=== PATIENT | male | born 1940 | race Caucasian/White ===

== ENCOUNTER → 2019-08-27 | Outpatient (CLI) | payer MEDICARE ==
[~2019-08-27] MED LIST: FINA5TAB4 PO; acid reflux med PO
[2019-08-27 12:21] LABS: MICROSCOPIC NOT IND
[2019-08-27 12:21] LABS: BASOPHILS # (AUTO) 0.03 x10^3/uL (0-0.1); BASOPHILS % (AUTO) 1 % (0-1); EOSINOPHILS # (AUTO) 0.22 x10^3/uL (0-0.4); EOSINOPHILS % (AUTO) 3 % (1-7); LYMPHOCYTES # (AUTO) 1.62 x10^3/uL (1-3.4); LYMPHOCYTES % (AUTO) 25 % (22-44); MD NO; MEAN CORPUSCULAR HEMOGLOBIN 30.6 pg (27.5-34.5); MEAN CORPUSCULAR HGB CONC 33.7 g/dL (33.2-36.2); MEAN CORPUSCULAR VOLUME 90.8 fL (81-97); MEAN PLATELET VOLUME 7.1 fL (7.4-10.4); MONOCYTES # (AUTO) 0.43 x10^3/uL (0.2-0.8); MONOCYTES % (AUTO) 7 % (2-9); NEUTROPHILS # (AUTO) 4.15 x10^3/uL (1.8-6.8); NEUTROPHILS % (AUTO) 64 % (42-75); PLATELET COUNT 251 x10^3/uL (130-400); RED BLOOD COUNT 4.65 x10^6/uL (4.38-5.82); RED CELL DISTRIBUTION WIDTH 13.4 % (9.4-14.8)
[2019-08-27 12:24] LABS: CULTURE INDICATED? NO
[2019-08-27 12:30] LABS: INTERNATIONAL NORMALIZED RATIO 0.95 (0.93-1.1); PROTHROMBIN TIME 10.1 Seconds (9.6-11.5)
[2019-08-27 12:34] LABS: CHLORIDE 104 mmol/L (98-107)
[2019-08-27 12:38] LABS: ANION GAP 5 mmol/L (5-15); CALCIUM 8.7 mg/dL (8.5-10.1); CREATININE 0.69 mg/dL (0.7-1.3)
== END | disposition home or self-care (01) ==
LOC: STAR 10:53
PROVIDERS: ATTEND Neurological Surgery
DX: Z01.811 Encounter for preprocedural respiratory examination (principal); K44.9 Diaphragmatic hernia without obstruction or gangrene; M47.814 Spondylosis without myelopathy or radiculopathy, thoracic region; M48.061 Spinal stenosis, lumbar region without neurogenic claudication; I45.10 Unspecified right bundle-branch block
CPT/HCPCS: 36415; 71046; 80048; 81003; 85025; 85610; 85730; 93005

== ENCOUNTER 2019-09-06 07:40 | Day surgery (SDC) | payer MEDICARE ==
[~2019-09-06] VITALS: Ht 172.7 cm; Wt 81.9 kg
[~2019-09-06 07:40] MED LIST changes: +BACITRACIN 50,000 UNIT ONE; +BUPIVACAINE/PF 0.25% ONE; +FENTANYL PF 100 MCG/2ML ONE; +methylPREDNISolone SOD SUCC 125 MG/2 ML ONE
[2019-09-06 08:24] VITALS: BP 144/84
[2019-09-06] MEDS ORDERED: LACTATED RINGERS 1,000 ML IV SCH (08:28)
[2019-09-06] MEDS ORDERED: TRAMADOL PO (08:29)
[2019-09-06] MEDS ORDERED: FENTANYL PF 250 MCG/5ML ONE (09:47)
[2019-09-06] MEDS ORDERED: MIDAZOLAM 1 MG/ML, 2ML ONE (09:47)
[2019-09-06] MEDS ORDERED: BUPIVACAINE/PF 0.25% ONE (10:09)
[2019-09-06] MEDS ORDERED: GABAPENTIN 300 MG CAPSULE PO ONE (10:30)
[2019-09-06] MEDS ORDERED: ONDANSETRON 2MG/ML, 2ML IV PRN (10:30)
[2019-09-06] MEDS ORDERED: OXYcodone 5 MG/5 ML ORAL.SOL UDC PO PRN (10:30)
[2019-09-06] MEDS ORDERED: OxyconTIN ER 10 MG TAB.ER PO ONE (10:30)
[2019-09-06] MEDS ORDERED: PROMETHAZINE 25 MG/ML, 1ML IV PRN (10:30)
[2019-09-06] MEDS ORDERED: MEPERIDINE/PF 25MG/ML,1ML IVPush PRN (10:30)
[2019-09-06] MEDS ORDERED: ACETAMINOPHEN 500 MG TABLET PO ONE (10:30)
[2019-09-06] MEDS ORDERED: hydrALAzine 20 MG/ML, 1ML IV PRN (10:30)
[2019-09-06] MEDS ORDERED: LABETALOL 5MG/ML, 20ML IV PRN (10:30)
[2019-09-06] MEDS ORDERED: DEXAMETHASONE 4 MG/ML, 1ML ONE (10:49)
[2019-09-06] MEDS ORDERED: ROCURONIUM 10MG/ML,5ML ONE (10:49)
[2019-09-06] MEDS ORDERED: PROPOFOL 10 MG/ML, 20ML ONE (10:49)
[2019-09-06] MEDS ORDERED: CEFAZOLIN 1,000 MG ONE ×2 (10:50→11:44)
[2019-09-06] MEDS ORDERED: VANCOMYCIN 1,000 MG ONE (11:43)
[2019-09-06] MEDS ORDERED: ONDANSETRON 2MG/ML, 2ML ONE (11:44)
[2019-09-06] MEDS ORDERED: VANCOMYCIN 1,000 MG IM ONE (11:47)
[2019-09-06] MEDS ORDERED: TIZA2TAB2 PO (12:09)
[2019-09-06] MEDS ORDERED: OXYC-302 PO (12:09)
[2019-09-06] MEDS ORDERED: FENTANYL PF 100 MCG/2ML ONE (12:28)
[2019-09-06] MEDS ORDERED: OXYcodone 5 MG/5 ML ORAL.SOL UDC ONE (12:28)
[2019-09-06] MEDS ORDERED: HYDROmorphone 1 MG/ML, 1ML INJ ONE (12:28)
[2019-09-06] MEDS ORDERED: METHOCARBAMOL 1,000 MG in DEXTROSE 5% 100 ML IV ONE (12:30)
[2019-09-06] MEDS ORDERED: TIZANIDINE 2MG TABLET PO PRN (12:30)
[2019-09-06] MEDS ORDERED: OXYcodone/APAP 5/325MG TABLET PO PRN (12:30)
[2019-09-06] MEDS: FENTANYL PF 100 MCG/2ML IV PRN ×3 (12:31→13:08)
[2019-09-06] MEDS: HYDROmorphone 2 MG/ML, 1ML IVPush PRN ×2 (12:41→13:01)
== END 2019-09-06 18:25 | disposition home or self-care (01) ==
LOC: OR 07:40
PROVIDERS: ATTEND Neurological Surgery
DX: M48.061 Spinal stenosis, lumbar region without neurogenic claudication (principal); M51.36 Other intervertebral disc degeneration, lumbar region; Z79.899 Other long term (current) drug therapy; Z98.890 Other specified postprocedural states
CPT/HCPCS: 22867; 22868; 72100; C1889; J0690; J1100; J1170; J2250; J2405; J2704; J2800; J3010; J3370; J3490; J7120; J2930